=== PATIENT | female | born 1985 | race Caucasian/White ===

== ENCOUNTER 2018-04-06 16:39 | Emergency (ER) | payer MEDICAID ==
[~2018-04-06] VITALS: Ht 170.2 cm; Wt 88.6 kg
[2018-04-06 16:45] VITALS: Ht 170.2 cm; Wt 88.6 kg
[2018-04-06] MEDS ORDERED: CLEOCIN PA75 MG/5 ML PO (17:09)
[2018-04-06 17:24] VITALS: BP 142/80
== END 2018-04-06 17:25 | disposition home or self-care (01) ==
LOC: D.ER 16:39
DX: L03.115 Cellulitis of right lower limb (principal); F17.200 Nicotine dependence, unspecified, uncomplicated

== ENCOUNTER 2018-11-03 08:00 | Outpatient (CLI) | payer MEDICAID ==
[2018-04-06 16:45] VITALS: BMI 30.6
[~2018-11-03 08:00] MED LIST: CLEOCIN PA75 MG/5 ML PO
== END 2018-11-03 09:00 | disposition home or self-care (01) ==
LOC: D.MAMMO 08:00
PROVIDERS: ATTEND Nurse Practitioner Women's Health
DX: N63.21 Unspecified lump in the left breast, upper outer quadrant (principal)

== ENCOUNTER → 2018-11-16 07:35 | Outpatient (CLI) | payer MEDICAID ==
[2018-04-06 16:45] VITALS: BMI 30.6
== END | disposition home or self-care (01) ==
LOC: D.US 07:35
PROVIDERS: ATTEND Nurse Practitioner Women's Health
DX: N63.21 Unspecified lump in the left breast, upper outer quadrant (principal)

== ENCOUNTER 2019-01-14 18:02 | Emergency (ER) | payer MEDICAID ==
[~2019-01-14] VITALS: Ht 170.2 cm; Wt 90.9 kg
[2019-01-14 18:39] VITALS: BP 137/86; Ht 170.2 cm; Wt 90.9 kg
== END 2019-01-14 22:37 | disposition left against medical advice (07) ==
LOC: D.ER 18:02
DX: R22.9 Localized swelling, mass and lump, unspecified (principal)

== ENCOUNTER 2019-01-18 00:17 | Emergency (ER) | payer MEDICAID ==
[~2019-01-18] VITALS: Ht 170.2 cm; Wt 93.2 kg
[2019-01-18] MEDS ORDERED: CLEOCIN HCL300 MG PO (01:15)
== END 2019-01-18 01:29 | disposition home or self-care (01) ==
LOC: D.ER 00:17
DX: L02.211 Cutaneous abscess of abdominal wall (principal)